=== PATIENT | female | born 1990 | race Caucasian/White ===

== ENCOUNTER 2016-12-28 23:29 | Emergency (ER) | payer OTHER ==
[~2016-12-28] VITALS: Wt 56.5 kg
[~2016-12-28 23:29] MED LIST: CIPR7.5D4 LEFT EAR; HYDR-3498 PO; IBUP800T25 PO; MOTRIN PO; ZOF8 PO
[2016-12-29 01:19] LABS: URINE BLOOD (Dip) POC Negative (NEGATIVE)
[2016-12-29] MEDS ORDERED: IBUPROFEN 800 MG TAB PO ONE (01:30)
[2016-12-29] MEDS ORDERED: AMOX1TAB10 PO (01:33)
[2016-12-29] MEDS ORDERED: OFLO5DRO7 LEFT EAR (01:33)
[2016-12-29] MEDS ORDERED: IBUP800T25 PO (01:33)
[2016-12-29] MEDS ORDERED: CARB15DR23 OTIC (01:34)
[2016-12-29 01:49] VITALS: BP 110/69; PULSE 84; RESP 16; TEMP 98.7
--- NOTE | 2016-12-29 03:26 | ERD ---
ER Documentation Chief Complaint Date/Time DATE: 12/29/16 TIME: 03:16 Chief Complaint Ear infection per verbatum. Pain started today HPI 26-year-old female complaining of left ear pain 3 days. Patient stated that her left ear is "swollen shut". She thinks that she had a swimmer's ear from showering. Patient states that she has frequent otitis externa in the past. Patient also complaining of decreased hearing in the right ear. She thinks that she may have jammed the earwax in too far. In addition, patient complained of dysuria 4 month. Denies fever or chills. Denies nasal congestion. Denies flank pain. ROS All systems reviewed and are negative except as per history of present illness. Medications Home Meds Active Scripts Carbamide Peroxide (Ear Wax Removal) 15 Ml Drops, 5-10 DROP OTIC BID, #1 BOTTLE Prov:MERRILL PINEDA. LINE THERAPIST 12/29/16 Amoxicillin/Potassium Clav (Amox-Clav 875-125 mg Tablet) 875-125 mg Tab, 1 TAB PO BID for 7 Days, #14 TAB Prov:MERRILL PINEDA. LINE THERAPIST 12/29/16 Ofloxacin Otic (Ofloxacin Otic) 5 Ml Drops, 5 DROP LEFT EAR BID for 10 Days, #1 BOTTLE Prov:MERRILL PINEDA NP 12/29/16 Ibuprofen* (Motrin*) 800 Mg Tab, 800 MG PO Q6H Y for PAIN AND OR ELEVATED TEMP, #30 TAB Prov:MERRILL PINEDA. LINE THERAPIST 12/29/16 Hydrocodone Bit-Acetaminophen* ([place]*) 5-325 Mg Tab, 1 TAB PO Q6 Y for PAIN, # 7 TAB Prov:JASSON REED DO 08/05/15 Ibuprofen* (Motrin*) 800 Mg Tab, 800 MG PO Q6H Y for PAIN AND OR ELEVATED TEMP, #20 TAB Prov:JASSON REED 08/05/15 Ciprofloxacin Hcl/Dexameth (Ciprodex Otic Suspension) 7.5 Ml Drops.susp, 4 DROP LEFT EAR BID for 7 Days, EA Prov:JASSON REED DO 08/05/15 Ondansetron Hcl* (Zofran* ODT) 8 mg -ODT Tab.disper, 8 MG PO Q6 Y for NAUSEA AND /OR VOMITING, #8 TAB Prov:SAVANNAH SHELDON MD 11/30/14 Hydrocodone Bit-Acetaminophen* ([place]*) 5-325 Mg Tab, 1 TAB PO Q6 Y for PAIN, # 10 TAB Prov:SAVANNAH SHELDON MD 11/30/14 Reported Medications [Motrin] No Conflict Check, PO 07/04/12 Allergies Allergies: Coded Allergies: No Known Drug Allergies (Verified Allergy, Mild, 02/22/14) PMhx/Soc History of Surgery: No Anesthesia Reaction: No Hx Neurological Disorder: No Hx Respiratory Disorders: No Hx Cardiac Disorders: No Hx Psychiatric Problems: No Hx Miscellaneous Medical Probl: Yes (chronic lower back pain AND EAR INFECTIONS ) Hx Alcohol Use: Yes (OCC) Hx Substance Use: No Hx Tobacco Use: No Smoking Status: Never smoker Physical Exam Vitals Vital Signs Date Time Temp Pulse Resp B/P Pulse Ox O2 Delivery O2 Flow Rate FiO2 12/29/16 01:49 98.7 84 16 110/69 97 Room Air 12/28/16 23:34 96.5 93 20 114/59 100 Physical Exam General: Well-developed, well-nourished, conscious and coherent, in no distress Skin: Warm and dry without rash, good texture and turgor Head: Normocephalic without evidence of trauma Eyes: Sclera and conjunctivae normal; pupils equal, round, and reactive to light; extraocular movements are intact Ears: Cerumen impaction in the right ear canal, unable to visualize TM. Left ear canal erythematous and swollen with purulent exudate, unable to visualize TM. Left tragal tenderness. Left mastoid tenderness. Nose/Face: Without rhinorrhea Mouth/throat: Mucous membranes are moist. Posterior pharynx clear without erythema or exudates Neck: Supple without meningismus or adenopathy. Carotids are equal. Trachea midline. No bruits or JVD Chest: Normal AP diameter. Good expansion without retractions. Nontender. Lungs are clear to auscultate bilaterally with good tidal volume Heart: Regular rate and rhythm. No murmur, rub, or gallops heard Abdomen: Soft and nontender without masses, guarding, or rebound. Bowel sounds are active. No hepatosplenomegaly Back: Without spinal or CVA tenderness Pelvis: Nontender to palpation and stable to compression Extremities: Full range of motion. Good strength bilaterally. No clubbing, cyanosis, or edema. Peripheral pulses are intact. Sensation intact Neuro: Alert and oriented 4, GCS 15. Cranial nerves grossly intact. Motor and sensory exams nonfocal. Moves all extremities. Speech clear. Gait normal Results 24 hrs Laboratory Tests Test 12/29/16 01:25 Bedside Urine pH (LAB) 7.0 Bedside Urine Protein (LAB) 1+ Bedside Urine Glucose (UA) Negative Bedside Urine Ketones (LAB) Negative Bedside Urine Blood Negative Bedside Urine Nitrite (LAB) Negative Bedside Urine Leukocyte Esterase (L Negative Current Medications Medications (Trade) Dose Ordered Sig/Shan Route PRN Reason Start Time Stop Time Status Last Admin Dose Admin Ibuprofen (Motrin) 800 mg ONCE ONCE PO 12/29/16 01:30 12/29/16 01:31 DC 12/29/16 01:20 Procedures/MDM Well-appearing 26-year-old female presented ED with left ear pain 3 days. Patient symptoms and exam findings consistent with acute otitis externa. She does have left mastoid tenderness, concerning for mastoiditis. Patient will be given prescription for ofloxacin otic and Augmentin to cover for possible mastoiditis. I have advised patient that she may need to use earwax to help ofloxacin otic to reach the depth of her left ear canal. Patient also has cerumen impaction and her right ear canal. Patient is educated on home care for cerumen removal. Patient complains of dysuria 4 months. Urine dip is negative for UTI. Patient appears well, stable for discharge and outpatient management. Medical decision making shared with patient and family. Education provided to patient and family. Patient and family expressed understanding of the plan. Medications on discharge: Ofloxacin otic, Augmentin, earwax removal. Follow-up: Primary care provider in 2-3 days or return to ED if worse. Disclaimer: Inadvertent spelling and grammatical errors are likely due to EHR/ dictation software use and do not reflect on the overall quality of patient care. Also, please note that the electronic time recorded on this note does not necessarily reflect the actual time of the patient encounter. Departure Diagnosis: Primary Impression: Left otitis externa Otitis externa type: swimmer's ear Chronicity: acute Qualified Code: H60.332 - Acute swimmer's ear of left side Additional Impressions: Dysuria Impacted cerumen of right ear Condition: Stable Patient Instructions: Cerumen Impaction, Home Care, Dysuria, Uncertain Cause ( Adult), External Ear Infection (Adult) Additional Instructions: Call your primary care doctor TOMORROW for an appointment during the next 2-3 days.See the doctor sooner or return here if your condition worsens before your appointment time. MERRILL PINEDA NP Dec 29, 2016 03:26
== END 2016-12-29 01:52 | disposition home or self-care (01) ==
LOC: FTE 23:29
DX: H60.332 Swimmer's ear, left ear (principal); R30.0 Dysuria; H61.21 Impacted cerumen, right ear
CPT/HCPCS: 81003; Z7610; 99283

== ENCOUNTER 2018-04-06 08:05 | Emergency (ER) | END 2018-04-06 10:13 | disposition home or self-care (01) ==